=== PATIENT | female | born 1955 | race Caucasian/White ===

== ENCOUNTER → 2024-10-30 | Outpatient (CLI) | payer MEDICARE, SELFPAY ==
--- NOTE | 2024-10-30 14:20 | XR_ITS ---
Examination: Bone densitometry Date and time of exam:October 30, 2024 1412 hours INDICATIONS: Menopause age 54 gastric bypass 2004 vitamin D 3 months, personal history osteopenia, diagnosis age related osteoporosis Technique: Lumbar spine and hip total bone mineralization values of an calculated. Peak reference and age match control results have been displayed. Findings: Lumbar spine total bone mineralization is0.833 gm/cm2. This is 1.7 standard deviations below peak reference. This is 0.5 standard deviations above age-matched controls. Hip total bone mineralization is 0.828 gm/cm2 This is 0.9 standard deviations below peak reference. This is 0.6 standard deviations above age-matched controls Impression: There is osteopenia based on lumbar spine measurements. There is osteopenia based on hip measurements Lumbar mineralization is decreased 8.1% compared with March 23, 2011 Hip mineralization is decreased 8.1% compared with March 23, 2011
== END | disposition home or self-care (01) ==
PROVIDERS: Referring Provider Internal Medicine; Visit Provider Internal Medicine
DX: M85.89 Other specified disorders of bone density and structure, multiple sites (principal)
CPT/HCPCS: 77080